=== PATIENT | male | born 1955 | race Hispanic/Latino ===

== ENCOUNTER → 2020-07-30 | Outpatient (CLI) | payer BC ==
--- NOTE | 2020-07-30 15:04 | Diagnostic Imaging Report ---
TECHNIQUE: Magnetic resonance imaging of the LEFT SHOULDER was performed WITHOUT injected contrast. COMPARISON: None available. HISTORY: Pain FINDINGS: MUSCLES AND TENDONS: Rotator Cuff: Tendons: Full thickness tear of the anterior supraspinatus tendon measuring approximately 0.5 cm in AP dimension with posterior propagation as a partial-thickness articular sided tear into the posterior supraspinatus. Tendon retraction of the deep fibers approximately 2.5 cm. Muscles: No focal muscle atrophy. Biceps Tendon: The long head of the biceps tendon is intact and within the intertubercular groove. GLENOHUMERAL JOINT: Glenoid Labrum: No displaced tear. Articular Cartilage: No focal defect. AC JOINT AND ACROMION: Moderate hypertrophic degenerative changes of the acromioclavicular joint. Subacromial spurring BONE: No acute fracture. SOFT TISSUES: Fluid in the subacromial subdeltoid bursa. IMPRESSION: Supraspinatus small full-thickness tear to the anterior fibers with posterior propagation as a partial-thickness articular sided tear into the posterior supraspinatus with retraction of the deep fibers. No atrophy. Acromioclavicular arthrosis and subacromial spurring. Signed by: Dr. Joseph Quesada M.D. on 07/30/2020 3:01 PM
--- NOTE | 2020-07-30 16:03 | Diagnostic Imaging Report ---
TECHNIQUE: Magnetic resonance imaging of the RIGHT SHOULDER was performed WITHOUT injected contrast. COMPARISON: None available. HISTORY: Right shoulder pain FINDINGS: MUSCLES AND TENDONS: Rotator Cuff: Tendons: Partial-thickness articular sided tearing of the supraspinatus with retraction of the deep fibers approximately 2 cm seen on coronal image 9. Possible full-thickness perforation of the anterior fibers coronal image 7. Muscles: No focal muscle atrophy. Biceps Tendon: The long head of the biceps tendon is within the bicipital groove. Intra-articular tendinosis. GLENOHUMERAL JOINT: Glenoid Labrum: Superior labral fraying. Articular Cartilage: No focal defect. AC JOINT AND ACROMION: Mild hypertrophic degenerative changes of the acromioclavicular joint. Subacromial spurring. BONE: No acute fracture. SOFT TISSUES: Fluid in the subacromial subdeltoid bursa. IMPRESSION: Supraspinatus partial-thickness articular sided tearing with retraction of the deep fibers (full-thickness perforation may present anteriorly). No atrophy. Mild subacromial spurring Signed by: Dr. Joseph Quesada M.D. on 07/30/2020 4:00 PM
== END ==
LOC: MRI 13:49
PROVIDERS: ATTEND Specialist
DX: M75.102 Unspecified rotator cuff tear or rupture of left shoulder, not specified as traumatic (principal); M75.101 Unspecified rotator cuff tear or rupture of right shoulder, not specified as traumatic

== ENCOUNTER → 2020-08-22 | Day surgery (SDC) | payer BC, OTHER ==
[2020-08-17 15:24] LABS: BLOOD UREA NITROGEN 19 mg/dL (7-26); BUN/CREATININE RATIO 21 (6-25); CALCIUM 9.6 mg/dL (8.4-10.2); CARBON DIOXIDE 25 mmol/L (22-29); CHLORIDE 110 mmol/L (98-107); CREATININE, SERUM 0.91 mg/dL (0.72-1.25); EST GLOMERULAR FILTRATION RATE > 60 ML/MIN (60-); GLUCOSE 94 mg/dL (74-118); SODIUM 145 mmol/L (136-145)
[~2020-08-22] MED LIST: ASPIRIN325 MG PO; BENICAR20 MG PO; CATAPRES-TTS 11 EACH TD; CEFAZOLIN SOD 1 GM/NS 50ML 100 ML IV ONE; CLONIDINE HCL0.1 MG PO; DESFLURANE 240 ML BTL INH ONE; DEXAMETHASONE SOD PHOS INJ 4 MG/ML VIAL ONE; DOXAZOSIN PO; EPHEDRINE SULFATE INJ 50 MG/ML VIAL ONE; EPINEPHRINE 1 MG/ML 30ML VIAL ONE; FENOFIBRATE145 MG PO; FENTANYL CITRATE/PF 100MCG/2 ML INJ ONE; FLOMAX0.4 MG PO; GLYCOPYRROLATE INJ 0.2 MG/ML VIAL ONE; HYDRALAZINE HCL10 MG PO; LIDOCAINE 2% /EPINEPHRINE 20 ML SDV INJ ONE; LIDOCAINE HCL (LTA) 4 ML SOLN ONE; LIDOCAINE HCL 2% JELLY 5 ML TUBE ONE; LIDOCAINE HCL 2% LOCAL INJ 5 ML SDV VIAL INJ ONE; METOPROLOL TART25 MG PO; MIDAZOLAM HCL 2 MG/2 ML VIAL ONE; NIACIN ER500 MG PO; NIFEDIPINE10 MG PO; OLMESARTAN-HCT1 EAC1 PO; OMEGA 3 1,0001 EACH PO; OMEPRAZOLE40 MG PO; ONDANSETRON HCL INJ 2MG/ML 2ML 2 MG/ML VIAL ONE; PRAVACHOL20 MG PO; PROPOFOL IV EMULSION 10 MG/ML 20 ML VIAL ONE; ROCURONIUM BROMIDE 10 MG/ML 5ML VIAL IV ONE; ROPIVACAINE 0.5% 5 MG/ML 30 ML SDV ONE; SUGAMMADEX SODIUM 200 MG/2 ML VIAL IV ONE; SYNJARDY 12.5-1 EACH PO; VITAMIN B-121000 MCG PO
[2020-08-22 13:40] VITALS: BP 135/77
== END | disposition home or self-care (01) ==
LOC: OR 06:18
PROVIDERS: ATTEND Specialist
DX: S46.092A Other injury of muscle(s) and tendon(s) of the rotator cuff of left shoulder, initial encounter (principal); S46.091A Other injury of muscle(s) and tendon(s) of the rotator cuff of right shoulder, initial encounter; M19.012 Primary osteoarthritis, left shoulder; M19.011 Primary osteoarthritis, right shoulder; M65.812 Other synovitis and tenosynovitis, left shoulder; M94.212 Chondromalacia, left shoulder; E11.9 Type 2 diabetes mellitus without complications; I10 Essential (primary) hypertension; K21.9 Gastro-esophageal reflux disease without esophagitis; G47.33 Obstructive sleep apnea (adult) (pediatric); F41.9 Anxiety disorder, unspecified; Z79.82 Long term (current) use of aspirin; Z01.810 Encounter for preprocedural cardiovascular examination; Z01.812 Encounter for preprocedural laboratory examination; Z11.59 Encounter for screening for other viral diseases
CPT/HCPCS: 29822; 29824; 29826; 29827; 36415 ×2; 80048; 82948; 93005; C1713; J0690; J1100; J2001 ×2; J2405; J2704; U0002; J2250; J2795; J3010

== ENCOUNTER 2022-01-21 14:12 | Inpatient (IN) | payer BC ==
[~2022-01-21] VITALS: Ht 177.8 cm; Wt 108.9 kg
[~2022-01-21 14:12] MED LIST changes: -CEFAZOLIN SOD 1 GM/NS 50ML 100 ML IV ONE; -DESFLURANE 240 ML BTL INH ONE; -DEXAMETHASONE SOD PHOS INJ 4 MG/ML VIAL ONE; -EPHEDRINE SULFATE INJ 50 MG/ML VIAL ONE; -EPINEPHRINE 1 MG/ML 30ML VIAL ONE; -FENTANYL CITRATE/PF 100MCG/2 ML INJ ONE; -GLYCOPYRROLATE INJ 0.2 MG/ML VIAL ONE; -LIDOCAINE 2% /EPINEPHRINE 20 ML SDV INJ ONE; -LIDOCAINE HCL (LTA) 4 ML SOLN ONE; -LIDOCAINE HCL 2% JELLY 5 ML TUBE ONE; -LIDOCAINE HCL 2% LOCAL INJ 5 ML SDV VIAL INJ ONE; -MIDAZOLAM HCL 2 MG/2 ML VIAL ONE; -ONDANSETRON HCL INJ 2MG/ML 2ML 2 MG/ML VIAL ONE; -PROPOFOL IV EMULSION 10 MG/ML 20 ML VIAL ONE; -ROCURONIUM BROMIDE 10 MG/ML 5ML VIAL IV ONE; -ROPIVACAINE 0.5% 5 MG/ML 30 ML SDV ONE; -SUGAMMADEX SODIUM 200 MG/2 ML VIAL IV ONE
[2022-01-21 15:51] LABS: BASOPHILS % 0.2 % (0.0-1.0); EOSINOPHILS # (AUTO) 0.2 (0.0-0.4); LYMPHOCYTES # (AUTO) 0.8 (1.0-3.2); LYMPHOCYTES % 14.5 % (18.0-39.1); MEAN CORPUSCULAR HEMOGLOBIN 31.5 pg (28-32); MEAN CORPUSCULAR HGB CONC 31.2 g/dL (31-35); MEAN CORPUSCULAR VOLUME 101.2 fL (81-99); MONOCYTES # (AUTO) 0.4 (0.2-0.8); MONOCYTES % 6.9 % (4.4-11.3); NEUTROPHILS % 74.3 % (38.7-80.0); PLATELET COUNT 168 x10e3/uL (140-360); RED BLOOD COUNT 1.68 x10e6/uL (4.3-5.7); RED CELL DISTRIBUTION WIDTH 18.1 % (11.7-14.4)
[2022-01-21 16:01] LABS: HEMOGLOBIN 5.3 g/dL (14.0-18.0)
[2022-01-21 16:16] LABS: ALBUMIN 3.5 g/dL (3.5-5.0); ALBUMIN/GLOBULIN RATIO 1.2 (0.8-2.0); ANION GAP 11.6 mmol/L (8-16); CALCIUM 8.3 mg/dL (8.4-10.2); CREATININE, SERUM 1.42 mg/dL (0.72-1.25); POTASSIUM 3.6 mmol/L (3.5-5.1)
[2022-01-21 16:25] LABS: CREATINE KINASE MB 1.2 ng/mL (0-5.0)
[2022-01-21 16:45] LABS: INR 1.08
[2022-01-21 16:46] LABS: PARTIAL THROMBOPLASTIN TIME 27.5 seconds (23.8-35.5)
[2022-01-21] MEDS ORDERED: SODIUM CHLORIDE 0.9% 250ML 250 ML IV ONE (17:15)
[2022-01-21] MEDS ORDERED: SODIUM CHLORIDE 0.9% 1000ML 1,000 ML IV STA (19:04)
[2022-01-21] MEDS ORDERED: IOPAMIDOL 370 MG/ML 200 ML INFUS..BTL INJ ONE (19:40)
[2022-01-21] MEDS ORDERED: SODIUM CHLORIDE 0.9% 50ML 50 ML ONE (19:40)
[2022-01-21 19:50] VITALS: BP 125/75
[2022-01-21 20:00] VITALS: BP 125/51
[2022-01-21 22:44] LABS: % IRON SATURATION 11 % (15-50); IRON 57 ug/dL (65-175); TOTAL IRON BINDING CAPACITY 536 ug/dL (261-478); TRANSFERRIN 383 mg/dL (174-364)
[2022-01-21 23:11] LABS: CREATINE KINASE MB 1.2 ng/mL (0-5.0)
[2022-01-21 23:46] VITALS: BP 124/52
[2022-01-22] MEDS ORDERED: SODIUM CHLORIDE 0.9% 250ML 500 ML ONE (00:26)
[2022-01-22] MEDS ORDERED: CARVEDILOL12.5 MG PO (01:07)
[2022-01-22] MEDS ORDERED: FINASTERIDE5 MG PO (01:07)
[2022-01-22] MEDS ORDERED: SPIRONOLACTONE25 MG PO (01:07)
[2022-01-22] MEDS ORDERED: CLONIDINE1 EAC2 TOP (01:07)
[2022-01-22] MEDS ORDERED: FUROSEMIDE40 MG PO (01:07)
[2022-01-22 04:00] VITALS: BP 105/43
[2022-01-22] MEDS: BENZONATATE 100 MG CAP PO PRN ×2 (05:14→22:19)
[2022-01-22 08:33] VITALS: BP 112/63
[2022-01-22 09:13] LABS: BASOPHILS % 0.1 % (0.0-1.0); EOSINOPHILS # (AUTO) 0.2 (0.0-0.4); EOSINOPHILS % 3.4 % (0.0-6.0); HEMOGLOBIN 7.3 g/dL (14.0-18.0); LYMPHOCYTES # (AUTO) 0.7 (1.0-3.2); LYMPHOCYTES % 10.8 % (18.0-39.1); MEAN CORPUSCULAR HEMOGLOBIN 30.7 pg (28-32); MEAN CORPUSCULAR HGB CONC 31.7 g/dL (31-35); MEAN CORPUSCULAR VOLUME 96.6 fL (81-99); MONOCYTES # (AUTO) 0.2 (0.2-0.8); MONOCYTES % 3.2 % (4.4-11.3); NEUTROPHILS # (AUTO) 5.6 (2.1-6.9); NEUTROPHILS % 81.6 % (38.7-80.0); PLATELET COUNT 170 x10e3/uL (140-360); RED BLOOD COUNT 2.38 x10e6/uL (4.3-5.7); RED CELL DISTRIBUTION WIDTH 17.7 % (11.7-14.4)
[2022-01-22] MEDS ORDERED: DEXTROSE 50% SYRINGE 50 ML IV PRN (09:15)
[2022-01-22 09:38] LABS: ALBUMIN 3.5 g/dL (3.5-5.0); ALBUMIN/GLOBULIN RATIO 1.2 (0.8-2.0); ANION GAP 12.2 mmol/L (8-16); CALCIUM 8.3 mg/dL (8.4-10.2); CREATININE, SERUM 1.25 mg/dL (0.72-1.25); POTASSIUM 3.2 mmol/L (3.5-5.1)
[2022-01-22] MEDS ORDERED: SODIUM CHLORIDE 0.9% 250ML 250 ML ONE (09:58)
[2022-01-22] MEDS: IRON SUCROSE 100 MG in SODIUM CHLORIDE 0.9% 100 ML 100 ML IV SCH (10:02)
[2022-01-22] MEDS: INSULIN LISPRO 100 UNIT/1 ML 3ML VIAL SQ SCH ×3 (11:22→21:00)
[2022-01-22 11:51] VITALS: BP 124/52
[2022-01-22] MEDS ORDERED: HEPARIN SOD (PORCINE) 1000 UNIT/ML SDV ONE (14:01)
[2022-01-22] MEDS: CARVEDILOL 12.5 MG TAB PO SCH (16:13)
[2022-01-22 16:26] VITALS: BP 126/55
[2022-01-22 20:00] VITALS: BP 145/69
[2022-01-22] MEDS: PRAVASTATIN 20 MG TAB PO SCH (22:19)
[2022-01-22 22:43] VITALS: BP 145/69
[2022-01-23] VITALS (7 sets, daily range): BP systolic 98–149; BP diastolic 48–71
[2022-01-23] MEDS: BENZONATATE 100 MG CAP PO PRN (04:50)
[2022-01-23 05:57] LABS: BASOPHILS % 0.1 % (0.0-1.0); EOSINOPHILS # (AUTO) 0.2 (0.0-0.4); EOSINOPHILS % 2.8 % (0.0-6.0); HEMATOCRIT 22.9 % (38.2-49.6); HEMOGLOBIN 7.1 g/dL (14.0-18.0); LYMPHOCYTES # (AUTO) 0.7 (1.0-3.2); LYMPHOCYTES % 9.6 % (18.0-39.1); MEAN CORPUSCULAR HEMOGLOBIN 30.3 pg (28-32); MEAN CORPUSCULAR VOLUME 97.9 fL (81-99); MONOCYTES # (AUTO) 0.4 (0.2-0.8); MONOCYTES % 5.6 % (4.4-11.3); NEUTROPHILS # (AUTO) 6.1 (2.1-6.9); NEUTROPHILS % 81.1 % (38.7-80.0); PLATELET COUNT 165 x10e3/uL (140-360); RED BLOOD COUNT 2.34 x10e6/uL (4.3-5.7); RED CELL DISTRIBUTION WIDTH 17.7 % (11.7-14.4)
[2022-01-23 06:24] LABS: ANION GAP 10.5 mmol/L (8-16); CALCIUM 8.3 mg/dL (8.4-10.2); CREATININE, SERUM 1.01 mg/dL (0.72-1.25); POTASSIUM 3.5 mmol/L (3.5-5.1)
[2022-01-23 07:25] LABS: ALBUMIN 3.1 g/dL (3.5-5.0); BILIRUBIN,DIRECT 0.3 mg/dL (0.0-0.5)
[2022-01-23] MEDS: HYDRALAZINE HCL 100 MG TABLET PO SCH ×3 (07:28→22:35)
[2022-01-23] MEDS: NIFEDIPINE CR 30 MG TAB PO SCH ×2 (07:28→17:36)
[2022-01-23] MEDS: INSULIN LISPRO 100 UNIT/1 ML 3ML VIAL SQ SCH ×4 (07:30→21:00)
[2022-01-23] MEDS ORDERED: GUAIFENESIN/CODEINE 5 ML LIQD PO PRN (08:45)
[2022-01-23] MEDS ORDERED: ALBUTEROL/IPRATROPIUM 3 ML NEB NEB PRN (08:45)
[2022-01-23] MEDS: ALBUTEROL/IPRATROPIUM 3 ML NEB NEB SCH ×3 (08:45→19:40)
[2022-01-23] MEDS: FENOFIBRATE 200 MG TAB PO SCH (09:00)
[2022-01-23] MEDS: LORATADINE 10 MG TAB PO SCH (09:07)
[2022-01-23] MEDS: IRON SUCROSE 100 MG in SODIUM CHLORIDE 0.9% 100 ML 100 ML IV SCH (09:07)
[2022-01-23] MEDS: CEFTRIAXONE 1 GM in SODIUM CHLORIDE 0.9% 50ML 50 ML IV SCH (09:07)
[2022-01-23] MEDS: BENZONATATE 100 MG CAP PO SCH ×3 (09:08→22:35)
[2022-01-23] MEDS: CARVEDILOL 12.5 MG TAB PO SCH ×2 (09:08→17:36)
[2022-01-23] MEDS: CYANOCOBALAMIN 1,000 MCG TAB PO SCH (09:08)
[2022-01-23] MEDS: DOXYCYCLINE HYCLATE TABLET 100 MG TAB PO SCH ×2 (09:08→22:35)
[2022-01-23] MEDS: FINASTERIDE 5 MG TAB PO SCH (09:08)
[2022-01-23] MEDS: FLUTICASONE PROPIONATE NASAL SPRAY NS SCH ×2 (12:44→17:36)
[2022-01-23] MEDS ORDERED: DEXAMETHASONE PHOS 4MG/ML 5ML MULTIDOSE VIAL IV STA (13:21)
[2022-01-23] MEDS ORDERED: SODIUM CHLORIDE 0.9% IV ONE (14:00)
[2022-01-23] MEDS ORDERED: DEXAMETHASONE PHOS IV ONE (14:00)
[2022-01-23 14:11] LABS: HEMATOCRIT 23.2 % (38.2-49.6); HEMOGLOBIN 7.2 g/dL (14.0-18.0); MEAN CORPUSCULAR HEMOGLOBIN 30.5 pg (28-32); MEAN CORPUSCULAR VOLUME 98.3 fL (81-99); PLATELET COUNT 172 x10e3/uL (140-360); RED BLOOD COUNT 2.36 x10e6/uL (4.3-5.7); RED CELL DISTRIBUTION WIDTH 17.9 % (11.7-14.4)
[2022-01-23 17:09] LABS: EOSINOPHILS % (MANUAL) 4 % (0-7); LYMPHOCYTES % (MANUAL) 4 % (19-48); MONOCYTES % (MANUAL) 1 % (3.4-9.0); NEUTROPHILS % (MANUAL) 91 % (40-74); NUCLEATED RED BLOOD CELLS 2; POLYCHROMASIA FEW
[2022-01-23 17:10] LABS: ANISOCYTOSIS SLIGHT; PLATELET ESTIMATE ADEQUATE; PLATELET MORPHOLOGY COMMENT FEW LARGE; RBC MORPHOLOGY COMMENT ABNORMAL
[2022-01-23] MEDS: TAMSULOSIN HCL 0.4 MG CAP PO SCH (17:36)
[2022-01-23] MEDS: MONTELUKAST SODIUM 10 MG TAB PO SCH (22:35)
[2022-01-23] MEDS: PRAVASTATIN 20 MG TAB PO SCH (22:35)
[2022-01-24] VITALS (9 sets, daily range): BP systolic 113–163; BP diastolic 48–75
[2022-01-24] MEDS: ALBUTEROL/IPRATROPIUM 3 ML NEB NEB SCH ×4 (01:35→20:10)
[2022-01-24 05:49] LABS: BASOPHILS % 0.1 % (0.0-1.0); HEMATOCRIT 24.7 % (38.2-49.6); HEMOGLOBIN 7.5 g/dL (14.0-18.0); LYMPHOCYTES # (AUTO) 0.5 (1.0-3.2); LYMPHOCYTES % 5.7 % (18.0-39.1); MEAN CORPUSCULAR HEMOGLOBIN 29.8 pg (28-32); MEAN CORPUSCULAR HGB CONC 30.4 g/dL (31-35); MONOCYTES # (AUTO) 0.2 (0.2-0.8); MONOCYTES % 2.6 % (4.4-11.3); NEUTROPHILS # (AUTO) 7.8 (2.1-6.9); NEUTROPHILS % 90.9 % (38.7-80.0); PLATELET COUNT 179 x10e3/uL (140-360); RED BLOOD COUNT 2.52 x10e6/uL (4.3-5.7); RED CELL DISTRIBUTION WIDTH 17.5 % (11.7-14.4)
[2022-01-24 06:11] LABS: ANION GAP 10.6 mmol/L (8-16); CALCIUM 8.6 mg/dL (8.4-10.2); CREATININE, SERUM 0.94 mg/dL (0.72-1.25); POTASSIUM 3.6 mmol/L (3.5-5.1)
[2022-01-24] MEDS: NIFEDIPINE CR 30 MG TAB PO SCH ×2 (07:23→17:09)
[2022-01-24] MEDS: INSULIN LISPRO 100 UNIT/1 ML 3ML VIAL SQ SCH ×4 (07:30→21:00)
[2022-01-24] MEDS: IRON SUCROSE 100 MG in SODIUM CHLORIDE 0.9% 100 ML 100 ML IV SCH (09:43)
[2022-01-24] MEDS: LORATADINE 10 MG TAB PO SCH (09:43)
[2022-01-24] MEDS: CEFTRIAXONE 1 GM in SODIUM CHLORIDE 0.9% 50ML 50 ML IV SCH (09:43)
[2022-01-24] MEDS: FENOFIBRATE 200 MG TAB PO SCH (09:44)
[2022-01-24] MEDS: DOXYCYCLINE HYCLATE TABLET 100 MG TAB PO SCH ×2 (09:44→21:21)
[2022-01-24] MEDS: CARVEDILOL 12.5 MG TAB PO SCH ×2 (09:44→17:09)
[2022-01-24] MEDS: FINASTERIDE 5 MG TAB PO SCH (09:44)
[2022-01-24] MEDS: FLUTICASONE PROPIONATE NASAL SPRAY NS SCH ×2 (09:44→17:09)
[2022-01-24] MEDS: CYANOCOBALAMIN 1,000 MCG TAB PO SCH (09:44)
[2022-01-24] MEDS: BENZONATATE 100 MG CAP PO SCH ×3 (09:44→21:21)
[2022-01-24] MEDS: HYDRALAZINE HCL 100 MG TABLET PO SCH ×3 (09:44→21:21)
[2022-01-24] MEDS ORDERED: DEXAMETHASONE SOD PHOS 10 MG/1 ML VIAL IV ONE (14:00)
[2022-01-24] MEDS ORDERED: DEXAMETHASONE PHOS 10MG INJ 40 MG in SODIUM CHLORIDE 0.9% 50ML 50 ML IV ONE (15:30)
[2022-01-24] MEDS: TAMSULOSIN HCL 0.4 MG CAP PO SCH (17:09)
[2022-01-24] MEDS: PRAVASTATIN 20 MG TAB PO SCH (21:21)
[2022-01-24] MEDS: MONTELUKAST SODIUM 10 MG TAB PO SCH (21:21)
[2022-01-24] MEDS ORDERED: ARTIFICIAL TEARS (OPTH) 15 ML BTL OP PRN (23:30)
[2022-01-25] VITALS: BP 124/61
[2022-01-25] MEDS: ALBUTEROL/IPRATROPIUM 3 ML NEB NEB SCH ×2 (02:45→06:50)
[2022-01-25 04:00] VITALS: BP 127/70
[2022-01-25] MEDS: NIFEDIPINE CR 30 MG TAB PO SCH (06:25)
[2022-01-25] MEDS: INSULIN LISPRO 100 UNIT/1 ML 3ML VIAL SQ SCH (07:30)
[2022-01-25 07:34] VITALS: BP 133/66
[2022-01-25 08:15] VITALS: BP 133/66
[2022-01-25] MEDS: IRON SUCROSE 100 MG in SODIUM CHLORIDE 0.9% 100 ML 100 ML IV SCH (09:45)
[2022-01-25] MEDS: FLUTICASONE PROPIONATE NASAL SPRAY NS SCH (09:45)
[2022-01-25] MEDS: LORATADINE 10 MG TAB PO SCH (09:45)
[2022-01-25] MEDS: CEFTRIAXONE 1 GM in SODIUM CHLORIDE 0.9% 50ML 50 ML IV SCH (09:45)
[2022-01-25] MEDS: BENZONATATE 100 MG CAP PO SCH (09:46)
[2022-01-25] MEDS: DOXYCYCLINE HYCLATE TABLET 100 MG TAB PO SCH (09:46)
[2022-01-25] MEDS: FINASTERIDE 5 MG TAB PO SCH (09:46)
[2022-01-25] MEDS: CARVEDILOL 12.5 MG TAB PO SCH (09:46)
[2022-01-25] MEDS: HYDRALAZINE HCL 100 MG TABLET PO SCH (09:46)
[2022-01-25] MEDS: CYANOCOBALAMIN 1,000 MCG TAB PO SCH (09:46)
[2022-01-25] MEDS: FENOFIBRATE 200 MG TAB PO SCH (09:48)
[2022-01-25 10:17] LABS: BASOPHILS % 0.1 % (0.0-1.0); HEMATOCRIT 28.1 % (38.2-49.6); HEMOGLOBIN 8.6 g/dL (14.0-18.0); LYMPHOCYTES # (AUTO) 0.6 (1.0-3.2); LYMPHOCYTES % 5.2 % (18.0-39.1); MEAN CORPUSCULAR HEMOGLOBIN 29.9 pg (28-32); MEAN CORPUSCULAR HGB CONC 30.6 g/dL (31-35); MEAN CORPUSCULAR VOLUME 97.6 fL (81-99); MONOCYTES # (AUTO) 0.4 (0.2-0.8); MONOCYTES % 3.3 % (4.4-11.3); NEUTROPHILS # (AUTO) 11.1 (2.1-6.9); NEUTROPHILS % 90.8 % (38.7-80.0); PLATELET COUNT 276 x10e3/uL (140-360); RED BLOOD COUNT 2.88 x10e6/uL (4.3-5.7); RED CELL DISTRIBUTION WIDTH 18.1 % (11.7-14.4)
[2022-01-25 10:37] LABS: ANION GAP 14.7 mmol/L (8-16); CALCIUM 9.3 mg/dL (8.4-10.2); CREATININE, SERUM 1.04 mg/dL (0.72-1.25); POTASSIUM 3.7 mmol/L (3.5-5.1)
[2022-01-25 11:33] VITALS: BP 111/69
[2022-01-25] MEDS ORDERED: BENZONATATE100 MG PO (12:22)
[2022-01-25] MEDS ORDERED: SINGULAIR10 MG PO (12:23)
[2022-01-25] MEDS ORDERED: LORATADINE10 MG PO (12:24)
[2022-01-25] MEDS ORDERED: FLONASE ALLERG9.9 ML INH (12:25)
[2022-01-25] MEDS ORDERED: COLACE100 MG PO (12:31)
[2022-01-25] MEDS ORDERED: KEFLEX125 MG/5 M PO (12:31)
[2022-01-25] MEDS ORDERED: PROAIR HFA INH8.5 GM IH (12:33)
[2022-01-25] MEDS ORDERED: medro dose pack (12:34)
[2022-01-25] MEDS ORDERED: HEMOCYTE PLUS1 EACH PO (12:35)
== END 2022-01-25 13:19 | disposition home or self-care (01) | DRG 377 ==
LOC: ER 14:30 → ERHOLD 17:10 → MED/SURG 19:58
PROVIDERS: ADMIT Internal Medicine; ATTEND Internal Medicine
PROC: 30233N1 Transfusion of Nonautologous Red Blood Cells into Peripheral Vein, Percutaneous Approach (ICD-10-PCS; principal; 2022-01-22)
DX: K57.33 Diverticulitis of large intestine without perforation or abscess with bleeding (principal); J18.9 Pneumonia, unspecified organism; D62 Acute posthemorrhagic anemia; J20.9 Acute bronchitis, unspecified; K64.9 Unspecified hemorrhoids; E66.9 Obesity, unspecified; I10 Essential (primary) hypertension; E78.5 Hyperlipidemia, unspecified; E11.9 Type 2 diabetes mellitus without complications; Z68.34 Body mass index [BMI] 34.0-34.9, adult; Z91.81 History of falling; K76.0 Fatty (change of) liver, not elsewhere classified; Z20.822 Contact with and (suspected) exposure to COVID-19
CPT/HCPCS: 36415; 71046; 74174; 78278; 80048; 80053; 80076; 82270; 82550; 82553; 82607; 82728; 82746; 82948; 83010; 83540; 83615; 84466; 84484; 85007; 85025; 85027; 85045; 85610; 85730; 86039; 86850; 86880; 86900; 86920; 93005; 94640; 94799; 99285; A9512; J0696; J1100; J1644; J1756; J7030; J7050; P9016; Q9967; U0002